=== PATIENT | female | born 1985 | race Caucasian/White ===

== ENCOUNTER 2017-08-27 21:12 | Emergency (ER) | payer OTHER ==
[~2017-08-27] VITALS: Ht 162.6 cm; Wt 72.6 kg
[2017-08-27 21:30] VITALS: BP 134/86
== END 2017-08-27 22:10 | disposition home or self-care (01) ==
LOC: ER 21:12
DX: B37.3 Candidiasis of vulva and vagina (principal); K59.00 Constipation, unspecified; F41.9 Anxiety disorder, unspecified; F32.9 Major depressive disorder, single episode, unspecified
CPT/HCPCS: 99283; A4606; Z7610

== ENCOUNTER 2017-11-08 10:21 | Emergency (ER) | payer OTHER ==
[~2017-11-08] VITALS: Ht 157.5 cm; Wt 72.6 kg
[2017-11-08 10:25] VITALS: BP 125/75
== END 2017-11-08 11:36 | disposition home or self-care (01) ==
LOC: ER 10:22
DX: S09.90XA Unspecified injury of head, initial encounter (principal); F32.9 Major depressive disorder, single episode, unspecified; F41.9 Anxiety disorder, unspecified; F63.3 Trichotillomania; W18.2XXA Fall in (into) shower or empty bathtub, initial encounter; Y93.E1 Activity, personal bathing and showering; Y92.89 Other specified places as the place of occurrence of the external cause; Y99.8 Other external cause status
CPT/HCPCS: A4606; Z7502; Z7610

== ENCOUNTER 2019-10-03 22:18 | Emergency (ER) | payer OTHER ==
[~2019-10-03] VITALS: Ht 160 cm; Wt 75.3 kg
[2019-10-03 22:33] VITALS: BP 136/69
--- NOTE | 2019-10-03 22:46 | NUR ---
DR NEVAREZ AT BEDSIDE
[2019-10-03] MEDS ORDERED: IBUPROFEN 400 MG TABLET ONE (22:48)
--- NOTE | 2019-10-03 22:56 | NUR ---
Patient discharged to home in stable condition. Written and verbal after care instructions given. Patient verbalizes understanding of instruction.
[2019-10-03] MEDS ORDERED: IBUPROFEN 400 MG TABLET PO ONE (23:00)
== END 2019-10-03 22:56 | disposition home or self-care (01) ==
LOC: ER 22:19
DX: S09.8XXA Other specified injuries of head, initial encounter (principal); F31.9 Bipolar disorder, unspecified; F63.3 Trichotillomania; E03.9 Hypothyroidism, unspecified; W22.8XXA Striking against or struck by other objects, initial encounter; Y93.89 Activity, other specified; Y92.89 Other specified places as the place of occurrence of the external cause; Y99.8 Other external cause status

== ENCOUNTER 2021-12-09 12:19 | Emergency (ER) | payer OTHER ==
[~2021-12-09] VITALS: Ht 162.6 cm; Wt 74.8 kg
[2021-12-09 12:20] VITALS: BP 121/73
--- NOTE | 2021-12-09 12:30 | NUR ---
AT BEDSIDE FOR EVAL.
[2021-12-09] MEDS ORDERED: FLUCONAZOLE (100 MG) 100 MG TABLET ONE (12:33)
--- NOTE | 2021-12-09 12:50 | NUR ---
Patient discharged to home in stable condition. Written and verbal after care instructions given. Patient verbalizes understanding of instruction.
[2021-12-09] MEDS ORDERED: FLUCONAZOLE (100 MG) 100 MG TABLET PO ONE (13:00)
== END 2021-12-09 12:51 | disposition home or self-care (01) ==
LOC: ER 12:20
DX: B37.3 Candidiasis of vulva and vagina (principal); F41.9 Anxiety disorder, unspecified; E03.9 Hypothyroidism, unspecified; F32.A Depression, unspecified; Z87.898 Personal history of other specified conditions